=== PATIENT | male | born 1965 | race African-American/Black ===

== ENCOUNTER 2016-10-16 20:53 | Emergency (ER) | payer MEDICAID, MEDICARE ==
[2016-10-16 21:56] VITALS: BP 148/96
[2016-10-16] MEDS ORDERED: LIDOCAINE 1% INJ-PF (10 MG/ML) 30 ML SDV INJ ONE (22:00)
--- NOTE | 2016-10-16 22:02 | ER Document Report ---
ED Medical Screen (RME) - General Chief Complaint: Laceration Stated Complaint: RIGHT INDEX FINGER LACERATION Notes: 51-year-old male chief complaint of accidental laceration to the right index finger with a skill saw prior to arrival. Patient states that his tetanus is up -to-date within 5 years. Patient denies any other injuries. TRAVEL OUTSIDE OF THE [place] IN LAST 30 DAYS: No - Related Data Allergies/Adverse Reactions: aspirin [Aspirin] Allergy (Verified 10/16/16 21:59) Past Medical History - Social History Frequency of alcohol use: None Drug Abuse: None - Past Medical History Cardiac Medical History: Reports: Hx Hypertension Denies: Hx Coronary Artery Disease, Hx Hypercholesterolemia Endocrine Medical History: Reports: Hx Diabetes Mellitus Type 2 Renal/ Medical History: Denies: Hx Peritoneal Dialysis Malignancy Medical History: Reports Hx Prostate Cancer Past Surgical History: Reports: Hx Orthopedic Surgery - back laminectomy, no hardware - Immunizations Immunizations up to date: Yes Hx Diphtheria, Pertussis, Tetanus Vaccination: Yes Physical Exam - Vital signs Vitals: Temp Pulse Resp BP Pulse Ox 97.7 F 80 22 H 148/96 H 96 10/16/16 21:55 10/16/16 21:55 10/16/16 21:55 10/16/16 21:55 10/16/16 21:55 - Skin Skin irregularity: Laceration - Laceration between the PIP and MCP of the right second digit over the dorsal aspect, irregular, there is a gap when patient flexes his finger, full flexion and extension, normal capillary refill and sensation Course - Vital Signs Vital signs: Temp Pulse Resp BP Pulse Ox 97.7 F 80 22 H 148/96 H 96 10/16/16 21:55 10/16/16 21:55 10/16/16 21:55 10/16/16 21:55 10/16/16 21:59
== END 2016-10-17 01:08 | disposition left against medical advice (07) ==
LOC: ER 20:53
DX: Z53.9 Procedure and treatment not carried out, unspecified reason (principal); S61.210A Laceration without foreign body of right index finger without damage to nail, initial encounter; W29.8XXA Contact with other powered hand tools and household machinery, initial encounter
CPT/HCPCS: 99281

== ENCOUNTER 2017-03-22 19:21 | Emergency (ER) | payer MEDICARE, OTHER ==
[2017-03-22 19:32] VITALS: BP 126/71
--- NOTE | 2017-03-22 20:10 | ER Document Report ---
HPI - HPI Pain Level: 5 Notes: Patient is a 51-year-old male presents the ED complaining of right knee pain and giving out 3 days the known injury. Patient states that he will have an occasional sharp pain that comes down the wrong or twists wrong. He has not noticed any locking in his knee. Patient has not noticed any swelling or deformity to his knee. He still eating drink without any problems. He has not lost any control of bowel or bladder. Denies any low back pain. Patient has an allergy to aspirin but only causes GI issues. He has been taking some over- the-counter meds with minimal relief. Patient is a diabetic and hypertensive and takes metformin along with lisinopril/HCTZ. He does take another diabetic medicine p.o. but does not remember the name. Patient states his sugars have been running between 105 and 115 on average. PCM is Dr. Sj Cali [facility]. Patient states he is to keep his leg straight in order to ambulate about his knee feeling unstable. Denies any fever, headaches, URI, sore throat, chest pain, palpitations, syncope, cough, wheeze, shortness of breath, abdominal pain, nausea/vomiting/diarrhea, melena, hematochezia, urinary retention, dysuria, hematuria, oliguria, muscle weakness/paralysis, rash. Denies any IV drug use. - ROS Notes: REVIEW OF SYSTEMS: CONSTITUTIONAL : Denies fever, chills, or sweats. Denies recent illness. EENT: Denies eye, ear, throat, or mouth pain or symptoms. Denies nasal or sinus congestion or discharge. Denies throat, tongue, or mouth swelling or difficulty swallowing. CARDIOVASCULAR: Denies chest pain. Denies palpitations or racing or irregular heart beat. Denies ankle edema. RESPIRATORY: Denies cough, cold, or chest congestion. Denies shortness of breath, difficulty breathing, or wheezing. GASTROINTESTINAL: Denies abdominal pain or distention. Denies nausea, vomiting , or diarrhea. Denies blood in vomitus, stools, or per rectum. Denies black, tarry stools. Denies constipation. GENITOURINARY: Denies difficulty urinating, painful urination, burning, frequency, blood in urine, or discharge. MUSCULOSKELETAL: see hpi SKIN: Denies rash, lesions or sores. NEUROLOGICAL: Denies confusion or altered mental status. Denies passing out or loss of consciousness. Denies dizziness or lightheadedness. Denies headache. Denies weakness or paralysis or loss of use of either side. Denies problems with gait or speech. Denies sensory loss, numbness, or tingling. Denies seizures. ALL OTHER SYSTEMS REVIEWED AND NEGATIVE. Dictation was performed using [employer] voice recognition software - REPRODUCTIVE Reproductive: DENIES: : - DERM Skin Color: Normal Past Medical History - Social History Smoking Status: Unknown if Ever Smoked Family History: Reviewed & Not Pertinent Patient has suicidal ideation: No Patient has homicidal ideation: No - Past Medical History Cardiac Medical History: Reports: Hx Hypertension Denies: Hx Coronary Artery Disease, Hx Hypercholesterolemia Endocrine Medical History: Reports: Hx Diabetes Mellitus Type 2 Renal/ Medical History: Denies: Hx Peritoneal Dialysis Malignancy Medical History: Reports Hx Prostate Cancer Past Surgical History: Reports: Hx Orthopedic Surgery - back laminectomy, no hardware - Immunizations Immunizations up to date: Yes Hx Diphtheria, Pertussis, Tetanus Vaccination: Yes Vertical Provider Document - CONSTITUTIONAL Notes: PHYSICAL EXAMINATION: GENERAL: Well-appearing, well-nourished and in no acute distress. Obese. NECK: Normal range of motion, supple without lymphadenopathy LUNGS: Breath sounds clear to auscultation bilaterally and equal. No wheezes rales or rhonchi. HEART: Regular rate and rhythm without murmurs, rubs, gallops. ABDOMEN: Soft, nontender, nondistended abdomen. No guarding, no rebound. No masses appreciated. Normal bowel sounds present. No CVA tenderness bilaterally. Musculoskeletal: Rt LE: LROM to passive/active. Strength 5+/5. Patellar grind mildly postive. Unable to adequately assess ligaments/Marce due to obesity and patient resistance. + tenderness/discomfort with flexion of the knee and palp to patellar tendon. No obvious effusion presents. No deformity, erythema , or ecchymosis noted. No signs of skin infection. Extremities: No cyanosis, clubbing, or edema b/l. Peripheral pulses 2+. Capillary refill less than 3 seconds. NEUROLOGICAL: Normal sensory, motor exams PSYCH: Normal mood, normal affect. SKIN: Warm, Dry, normal turgor, no rashes or lesions noted. - INFECTION CONTROL TRAVEL OUTSIDE OF THE [place] IN LAST 30 DAYS: No - RESPIRATORY O2 Sat by Pulse Oximetry: 96 Course - Re-evaluation Re-evalutation: 03/22/17 20:55 Patient is an afebrile, well-hydrated, 51-year-old male presents the ED complaining of right knee pain with no known injury. Suspect possible meniscal involvement and/or ligament involvement. Differential also includes tendinitis and bursitis. Low suspicion for any septic arthritis or fracture based on H&P today. X-ray was unremarkable. Pt cedlined crutches, states he has some at home he can use. Pt would like the knee immobilizer. Conservative measures for symptoms. Recheck with your PCM in 2-3 days. Consider consult with orthopedics for ongoing/worsening symptoms. Return to the ED with any ongoing/ worsening symptoms as reviewed in discharge. Patient is in agreement. - Vital Signs Vital signs: Temp Pulse Resp BP Pulse Ox 98.2 F 95 16 126/71 H 96 03/22/17 19:31 03/22/17 19:31 03/22/17 19:31 03/22/17 19:31 03/22/17 19:31 Procedures - Immobilization Right Knee Time completed: 23:00 Pre-Proc Neuro Vasc Exam: Normal Immobilizer type: Knee immobilizer Performed by: PCT Post-Proc Neuro Vasc Exam: Normal Discharge - Discharge Clinical Impression: Instability of right knee joint Right knee pain Qualifiers: Chronicity: acute Qualified Code(s): M25.561 - Pain in right knee Condition: Stable Instructions: Use of Crutches ([facility]), Ice & Elevation ([facility]), Suspected Internal Knee Injury ([facility]) Additional Instructions: Rest, Ice, Compression, Elevation Use crutches/immobilizer as directed Tylenol/ibuprofen as needed Light stretches daily Strength exercises as able Moist heat and massage may help F/u with your PCP in 2-3 days for a recheck and further investigation Consider consult(s) with Orthopedics for ongoing/worsening symptoms Return to the ED with any worsening symptoms and/or development of fever, headache, chest pain, palpitations, syncope, shortness of breath, trouble breathing, abdominal pain, n/v/d, blood in stool/urine, loss of control of bowel /bladder, urinary retention, muscle weakness/paralysis, numbness/tingling, skin erythema, abscess, red streaks, or other worsening symptoms that are concerning to you. Referrals: [facility] ([facility] [Provider Group] - Follow up as needed
--- NOTE | 2017-03-22 20:40 | RADIOLOGY REPORT (SQ) ---
EXAM DESCRIPTION: KNEE RIGHT 4 VIEWS COMPLETED DATE/TIME: 03/22/2017 8:28 pm REASON FOR STUDY: right knee pain COMPARISON: None. NUMBER OF VIEWS: Four views. TECHNIQUE: AP, lateral, and both oblique radiographic images acquired of the right knee. LIMITATIONS: None. FINDINGS: MINERALIZATION: Normal. BONES: No acute fracture or dislocation. No worrisome bone lesions. JOINT: No effusion. SOFT TISSUES: No soft tissue swelling. No radio-opaque foreign body. OTHER: No other significant finding. IMPRESSION: NEGATIVE STUDY OF THE RIGHT KNEE. NO RADIOGRAPHIC EVIDENCE OF ACUTE INJURY. TECHNICAL DOCUMENTATION: JOB ID: [id number] [employer]- All Rights Reserved
== END 2017-03-22 21:11 | disposition home or self-care (01) ==
LOC: ER 19:21
DX: M25.361 Other instability, right knee (principal); M25.561 Pain in right knee; E11.9 Type 2 diabetes mellitus without complications; I10 Essential (primary) hypertension; Z79.84 Long term (current) use of oral hypoglycemic drugs; Z79.899 Other long term (current) drug therapy; E66.9 Obesity, unspecified; Z68.43 Body mass index [BMI] 50.0-59.9, adult; Z85.46 Personal history of malignant neoplasm of prostate; Z88.6 Allergy status to analgesic agent
CPT/HCPCS: 99283; 73564; L1830

== ENCOUNTER → 2017-09-22 | Outpatient (CLI) | payer MEDICARE, OTHER ==
[2017-09-23 09:48] LABS: PROSTATE SPECIFIC ANTIGEN 5.7 ng/mL (0.0-4.0); PSA % FREE 19.1 % (.); PSA FREE 1.09 ng/mL
== END ==
LOC: OD 11:47
PROVIDERS: ATTEND Urology
DX: C61 Malignant neoplasm of prostate (principal)
CPT/HCPCS: 36415; 84154

== ENCOUNTER 2018-02-12 10:14 | Observation (INO) | payer OTHER, MEDICARE ==
[2018-02-12] MEDS ORDERED: HYDROCODONE/ACETAMINOPHEN 5-325 MG TABLET PO ONE (11:00)
--- NOTE | 2018-02-12 11:00 | ER Document Report ---
ED Medical Screen (RME) - General Chief Complaint: Chest Pain Stated Complaint: CHEST PAIN Time Seen by Provider: 02/12/18 10:54 Notes: 52 years old male with a history of high blood pressure diabetes, just prior to arrival started having left-sided chest pain and left arm pain associated with nausea. Denies any diaphoresis denies any shortness of breath. Pain is persistent moderate in intensity. Movement of the chest or pressure on the chest increases the pain. I have greeted and performed a rapid initial assessment of this patient. A comprehensive ED assessment and evaluation of the patient, analysis of test results and completion of the medical decision making process will be conducted by additional ED providers. PHYSICAL EXAMINATION: GENERAL: Well-appearing, well-nourished and in no acute distress. Morbid obesity HEAD: Atraumatic, normocephalic. EYES: Pupils equal round extraocular movements intact, conjunctiva are normal. ENT: Nares patent NECK: Normal range of motion LUNGS: No respiratory distress Chest wall-chest wall tenderness noted on palpation of the left side of the chest. Musculoskeletal: Normal range of motion NEUROLOGICAL: Normal speech, normal gait. PSYCH: Normal mood, normal affect. SKIN: Warm, Dry, normal turgor, no rashes or lesions noted. TRAVEL OUTSIDE OF THE [place] IN LAST 30 DAYS: No - Related Data Allergies/Adverse Reactions: aspirin [Aspirin] Allergy (Verified 02/12/18 10:17) Past Medical History - Past Medical History Cardiac Medical History: Reports: Hx Hypertension Denies: Hx Coronary Artery Disease, Hx Hypercholesterolemia Endocrine Medical History: Reports: Hx Diabetes Mellitus Type 2 Renal/ Medical History: Denies: Hx Peritoneal Dialysis Malignancy Medical History: Reports Hx Prostate Cancer Past Surgical History: Reports: Hx Orthopedic Surgery - back laminectomy, no hardware - Immunizations Immunizations up to date: Yes Hx Diphtheria, Pertussis, Tetanus Vaccination: Yes Physical Exam - Vital signs Vitals: Temp Pulse Resp BP Pulse Ox 98.2 F 69 18 109/64 97 02/12/18 10:28 02/12/18 10:28 02/12/18 10:02/12/18 10:02/12/18 10:28 Course - Vital Signs Vital signs: Temp Pulse Resp BP Pulse Ox 98.2 F 69 18 109/64 97 02/12/18 10:28 02/12/18 10:28 02/12/18 10:28 02/12/18 10:28 02/12/18 10:28 Doctor's Discharge - Discharge Referrals: MARLON BUSBY,DARIN Li MD [Primary Care Provider] - Follow up as needed
[2018-02-12 11:42] LABS: ABSOLUTE BASOPHILS # (AUTO) 0.1 10^3/uL (0.0-0.2); ABSOLUTE EOSINOPHILS # (AUTO) 0.3 10^3/uL (0.0-0.6); ABSOLUTE LYMPHOCYTES (AUTO) 2.4 10^3/uL (0.5-4.7); ABSOLUTE MONOCYTES (AUTO) 0.5 10^3/uL (0.1-1.4); ABSOLUTE NEUT (AUTO) 3.1 10^3/uL (1.7-8.2); EOSINOPHILS % (AUTO) 4.3 % (0-6); HEMATOCRIT 48.5 % (37.9-51.0); HEMOGLOBIN 16.2 g/dL (13.5-17.0); LYMPHOCYTES % (AUTO) 37.6 % (13-45); MEAN CORPUSCULAR HEMOGLOBIN 28.5 pg (27.0-33.4); MEAN CORPUSCULAR HGB CONC 33.3 g/dL (32.0-36.0); MEAN CORPUSCULAR VOLUME 85 fl (80-97); MONOCYTES % (AUTO) 7.6 % (3-13); PLATELET COUNT 201 10^3/uL (150-450); RED BLOOD COUNT 5.67 10^6/uL (4.35-5.55); RED CELL DISTRIBUTION WIDTH 14.3 % (11.5-14.0); SEGMENTED NEUTROPHILS % (AUTO) 49.5 % (42-78); TOTAL CELLS COUNTED % (AUTO) 100 %; WHITE BLOOD COUNT 6.3 10^3/uL (4.0-10.5)
[2018-02-12 12:04] LABS: ALANINE AMINOTRANSFERASE 42 U/L (21-72); ALBUMIN 3.8 g/dL (3.5-5.0); ALKALINE PHOSPHATASE 64 U/L (38-126); ANION GAP 10 (5-19); ASPARTATE AMINO TRANSFERASE 24 U/L (17-59); BILIRUBIN,DIRECT 0.3 mg/dL (0.0-0.4); BILIRUBIN,TOTAL 0.7 mg/dL (0.2-1.3); BLOOD UREA NITROGEN 17 mg/dL (7-20); CALCIUM 9.4 mg/dL (8.4-10.2); CARBON DIOXIDE 28 mmol/L (22-30); CHLORIDE 107 mmol/L (98-107); CREATINE KINASE 58 U/L (55-170); GLUCOSE 75 mg/dL (75-110); POTASSIUM 4.1 mmol/L (3.6-5.0); SODIUM 144.5 mmol/L (137-145); TOTAL PROTEIN 6.6 g/dL (6.3-8.2)
--- NOTE | 2018-02-12 12:06 | ER Document Report ---
ED Cardiac - General Mode of Arrival: Ambulatory Information source: Patient TRAVEL OUTSIDE OF THE [place] IN LAST 30 DAYS: No <ERICH HENRY - Last Filed: 02/12/18 19:00> <PORTILLO DEMARCO - Last Filed: 02/12/18 19:10> - General Chief Complaint: Chest Pain Stated Complaint: CHEST PAIN Time Seen by Provider: 02/12/18 10:54 Notes: 52 y.o male with HTN, DM and PSHx of back surgery presents to the ED with CP. Pt reports that he went to work this morning and felt dizzy with pain in his left arm and chest. Pt reports previous stress test but states that it was not within the past year or two. He denies Hx of HLD, MT or stent placement. He denies hx of known murmur. Pt denies any family hx of heart issues. Pt also complains of a tingling feeling to his LT side that he describes as a phone vibrating in his pocket. He denies any incontinence, foot drop or stumbling when walking or numbness to his legs. Pt's PCP is Mitesh Galvan. (ERICH HENRY) - Related Data Allergies/Adverse Reactions: aspirin [Aspirin] Allergy (Verified 02/12/18 10:17) Past Medical History - General Information source: Patient - Social History Smoking Status: Former Smoker Chew tobacco use (# tins/day): No Frequency of alcohol use: None Drug Abuse: None Family History: Reviewed & Not Pertinent Patient has suicidal ideation: No Patient has homicidal ideation: No - Past Medical History Cardiac Medical History: Reports: Hx Hypertension Endocrine Medical History: Reports: Hx Diabetes Mellitus Type 2 Renal/ Medical History: Denies: Hx Peritoneal Dialysis Malignancy Medical History: Reports Hx Prostate Cancer Past Surgical History: Reports: Hx Orthopedic Surgery - back laminectomy, no hardware - Immunizations Immunizations up to date: Yes Hx Diphtheria, Pertussis, Tetanus Vaccination: Yes <ERICH HENRY - Last Filed: 02/12/18 19:00> Review of Systems - Review of Systems Constitutional: No symptoms reported EENT: No symptoms reported Cardiovascular: See HPI, Chest pain, Dizziness Respiratory: No symptoms reported Gastrointestinal: denies: Fecal incontinence Genitourinary: denies: Incontinence Male Genitourinary: No symptoms reported Musculoskeletal: Other - LT arm pain Skin: No symptoms reported Hematologic/Lymphatic: No symptoms reported Neurological/Psychological: Tingling - to LT side - "phone buzzing in pocket". denies: Gait changes, Numbness -: Yes All other systems reviewed and negative <ERICH HENRY - Last Filed: 02/12/18 19:00> Physical Exam <ERICH HENRY - Last Filed: 02/12/18 19:00> <PORTILLO DEMARCO - Last Filed: 02/12/18 19:10> - Vital signs Vitals: Temp Pulse Resp BP Pulse Ox 98.2 F 69 18 109/64 97 02/12/18 10:28 02/12/18 10:28 02/12/18 10:28 02/12/18 10:28 02/12/18 10:28 - Notes Notes: PHYSICAL EXAM GENERAL: Alert, interacts well. No acute distress. HEAD: Normocephalic, atraumatic. EYES: Pupils equal, round, and reactive to light. Extraocular movements intact. ENT: Oral mucosa moist, tongue midline. NECK: Full range of motion. Supple. Trachea midline. LUNGS: Clear to auscultation bilaterally, no wheezes, rales, or rhonchi. No respiratory distress. HEART: Regular rate and rhythm. No gallops or rubs. 2/6 systolic murmur. ABDOMEN: Obese. Soft, non-tender. Non-distended. Bowel sounds present in all 4 quadrants. No guarding, rebound, or rigidity. Back: No midline megan tenderness to palpation. EXTREMITIES: Moves all 4 extremities spontaneously. No edema, radial and dorsalis pedis pulses 2/4 bilaterally. No cyanosis. NEUROLOGICAL: Alert and oriented x3. Normal speech. PSYCH: Normal affect, normal mood. (ERICH HENRY) Course - Laboratory Result Diagrams: 02/12/18 11:18 02/12/18 11:18 <ERICH HENRY - Last Filed: 02/12/18 19:00> - Laboratory Result Diagrams: 02/12/18 11:18 02/12/18 11:18 <PORTILLO DEMARCO - Last Filed: 02/12/18 19:10> - Re-evaluation Re-evalutation: 02/12/18 12:48 CBC is grossly unremarkable, CMP unremarkable, cardiac enzymes initially negative, EKG shows sinus rhythm at a rate of 75, normal axis, normal intervals , no ST segment elevations or depressions, there are isolated nonspecific T- wave inversions in lead III per my interpretation. Chest x-ray shows no acute process. Patient has multiple risk factors for acute coronary syndrome. He is given Plavix because he is allergic to aspirin. Patient was discussed with Dr. Dangelo the hospitalist who agrees to accept the patient to his service for a chest pain rule out observation on telemetry. (PORTILLO DEMARCO) - Vital Signs Vital signs: Temp Pulse Resp BP Pulse Ox 97.7 F 61 18 100/57 L 100 02/12/18 14:43 02/12/18 15:19 02/12/18 14:43 02/12/18 14:43 02/12/18 14:43 - Laboratory Laboratory results interpreted by me: 02/12/18 02/12/18 11:18 11:18 RBC 5.67 H RDW 14.3 H HDL Cholesterol 27 L - EKG Interpretation by Me Additional EKG results interpreted by me: 02/12/18 12:48 EKG shows sinus rhythm at a rate of 75, normal axis, normal intervals, no ST segment elevations or depressions, isolated nonspecific T-wave inversions in lead III per my interpretation. (PORTILLO DEMARCO) Discharge <ERICH HENRY - Last Filed: 02/12/18 19:00> - Discharge Admitting Provider: Hospitalist - [facility] Admitted: Telemetry <PORTILLO DEMARCO - Last Filed: 02/12/18 19:10> - Discharge Clinical Impression: Chest pain, rule out acute myocardial infarction Condition: Stable Disposition: ADMITTED OBSERVATION Scribe Attestation: 02/12/18 19:10 I personally performed the services described in the documentation, reviewed and edited the documentation which was dictated to the scribe in my presence, and it accurately records my words and actions. (PORITLLO DEMARCO) Scribe Documentation - Scribe Written by Kyrie:: Kyrie Foster [id number] 02/12/18 acting as scribe for :: Bartolo <ERICH HENRY - Last Filed: 02/12/18 19:00>
--- NOTE | 2018-02-12 12:08 | RADIOLOGY REPORT (SQ) ---
EXAM DESCRIPTION: CHEST SINGLE VIEW COMPLETED DATE/TIME: 02/12/2018 11:32 am REASON FOR STUDY: Chest pain COMPARISON: Two-view chest 10/12/2014 EXAM PARAMETERS: NUMBER OF VIEWS: One view. TECHNIQUE: Single frontal radiographic view of the chest acquired. RADIATION DOSE: NA LIMITATIONS: None. FINDINGS: LUNGS AND PLEURA: No opacities, masses or pneumothorax. No pleural effusion. MEDIASTINUM AND HILAR STRUCTURES: No masses. Contour normal. HEART AND VASCULAR STRUCTURES: Heart normal in size. Normal vasculature. BONES: No acute findings. HARDWARE: None in the chest. OTHER: No other significant finding. IMPRESSION: NO ACUTE RADIOGRAPHIC FINDING IN THE CHEST. TECHNICAL DOCUMENTATION: JOB ID: [id number] [employer]- All Rights Reserved Reading location - IP/workstation name: [email or web address]
[2018-02-12 12:17] LABS: CREATINE KINASE MB 0.44 ng/mL (<4.55)
[2018-02-12 12:19] LABS: TROPONIN I < 0.012 ng/mL
[2018-02-12] MEDS ORDERED: CLOPIDOGREL BISULFATE 300 MG TABLET PO ONE (12:45)
[2018-02-12] MEDS ORDERED: NITROGLYCERIN 0.4 MG/TAB 25 TAB/BOTTLE SL PRN (13:38)
[2018-02-12] MEDS ORDERED: ONDANSETRON 4 MG TAB.RAPDIS PO PRN (13:38)
[2018-02-12] MEDS ORDERED: ACETAMINOPHEN 325 MG TABLET PO PRN (13:45)
[2018-02-12] MEDS ORDERED: HYDROCODONE/ACETAMINOPHEN 5-325 MG TABLET PO PRN (13:46)
--- NOTE | 2018-02-12 14:05 | PDOC H&P ---
History of Present Illness Admission Date/PCP: 02/12/18 13:04 PCP: Dr. Mitesh Galvan Patient complains of: chest pain History of Present Illness: YOKO GREEN is a 52 year old male with history of morbid obesity, T2DM, and HTN who presented to [facility] ED for evaluation of acute chest pain. He was in good health until this morning around 8am when he developed lightheadness and nausea. A few minutes later he had sharp pain in his chest (left side) that radiated down left arm. He also noted intermittent facial numbness and diaphoresis. Denies SOB, abdominal pain, or vomiting. NO other symptoms. Had 1 similar episode 3 years ago. Stress test was performed at that time and negative per patient. Work up today included labs which were largely unremarkable including negative troponin * 1. EKG showed sinus rhythm with non- specific changes however no acute ST elevations. At time of my evaluation patient's symptoms were resolved. He notes a family history on maternal side that is strong for diabetes. Past Medical History Cardiac Medical History: Reports: Hypertension Denies: Coronary Artery Disease, Hyperlipidema Endocrine Medical History: Reports: Diabetes Mellitus Type 2 Past Surgical History Past Surgical History: Reports: Orthopedic Surgery - back laminectomy, no hardware Social History Information Source: Patient Lives with: Family Smoking Status: Former Smoker Frequency of Alcohol Use: None Hx Recreational Drug Use: No Drugs: None Family History Family History: Reviewed & Not Pertinent Parental Family History Reviewed: Yes - Mother: DM, HTN Children Family History Reviewed: NA Sibling(s) Family History Reviewed.: Yes Medication/Allergy Home Medications: Lisinopril/Hydrochlorothiazide [Lisinopril-Hctz 10-12.5 mg Tab] 1 each PO DAILY 10/04/13 Metformin HCl [Glucophage] 1,000 mg PO DAILY 10/04/13 Hydrocodone/Acetaminophen [[place] 5-325 mg Tablet] 1 tab PO Q4HP PRN #14 tablet 01/04/15 Butalb/Acetaminophen/Caffeine [Fioricet 50-300-40 mg Capsule] 1 cap PO Q4 PRN # 20 cap 01/10/15 Indomethacin [Indocin 50 mg Capsule] 50 mg PO TID PRN #30 capsule 12/01/15 Allergies/Adverse Reactions: aspirin [Aspirin] Allergy (Verified 02/12/18 10:17) Review of Systems All systems: reviewed and no additional remarkable complaints except as stated Physical Exam Vital Signs: Temp Pulse Resp BP Pulse Ox 98.2 F 69 14 103/71 99 02/12/18 10:28 02/12/18 10:28 02/12/18 12:15 02/12/18 13:04 02/12/18 13:04 General appearance: PRESENT: no acute distress, cooperative, morbidly obese Head exam: PRESENT: atraumatic, normocephalic Eye exam: ABSENT: scleral icterus Mouth exam: PRESENT: moist Neck exam: PRESENT: other - Thick neck, difficult to assess for JVD Respiratory exam: PRESENT: unlabored. ABSENT: tachypnea, wheezes Cardiovascular exam: PRESENT: +S1, +S2, other - Distant heart sounds due to body habitus GI/Abdominal exam: PRESENT: normal bowel sounds, soft. ABSENT: tenderness Extremities exam: PRESENT: full ROM Musculoskeletal exam: PRESENT: ambulatory Neurological exam: PRESENT: alert, awake, CN II-XII grossly intact Psychiatric exam: PRESENT: appropriate affect Skin exam: PRESENT: dry, intact Results EKG Comments: Per HPI Impressions: Chest X-Ray 02/12/18 10:57 IMPRESSION: NO ACUTE RADIOGRAPHIC FINDING IN THE CHEST. Assessment & Plan - Diagnosis (1) Chest pain, rule out acute myocardial infarction Is this a current diagnosis for this admission?: Yes Plan: Presented with class chest pain symptoms that improved with nitro. No EKG changes and troponin negative * 1. Risk factors for cardiac disease include morbid obesity, black race, HTN, and DM. No strong family history of CAD. Plan - Noted to have ASA allergy, so was not given. Nitro SL and Zofran ODT ordered PRN - Will check 2nd troponin, added lipid profile and HgA1c for risk stratification - Ordered nuclear stress test - Started lipitor 40mg qhs daily given high 10 year score (estimated) - Cardiac/heart healthy diet - Admit to telemetry, if negative stress can discharge tomorrow 02/13 (2) Type 2 diabetes mellitus Qualifiers: Diabetes mellitus jail insulin use: without jail use Diabetes mellitus complication status: without complication Qualified Code(s): E11.9 - Type 2 diabetes mellitus without complications Is this a current diagnosis for this admission?: Yes Plan: Compliant with home oral Metformin and Glipizide - Will check HgA1c to get new baseline (3) Hypertension Qualifiers: Hypertension type: essential hypertension Qualified Code(s): I10 - Essential (primary) hypertension Is this a current diagnosis for this admission?: Yes Plan: Chronic and Well controlled, continued home medications (4) Morbid obesity with BMI of 50.0-59.9, adult Is this a current diagnosis for this admission?: Yes Plan: Has started vegetarian diet and lost 30lbs in last month. Congratulated patient and encouraged to continue with healthy lifestyle changes. - Time Time Spent: 50 to 70 Minutes Critical Time spent with patient: 15-24 minutes Anticipated discharge: Home Within: within 24 hours
[2018-02-12 14:24] LABS: CHOLESTEROL 126.46 mg/dL (0-200); TRIGLYCERIDES 101 mg/dL (<150)
[2018-02-12 14:35] LABS: DIRECT LDL 88 mg/dL (<100)
--- NOTE | 2018-02-12 18:02 | EKG REPORT ---
SEVERITY:- BORDERLINE ECG - SINUS RHYTHM BORDERLINE INFERIOR Q WAVES : Confirmed by: Sary Rashid 12-Feb-2018 18:01:26
[2018-02-12] MEDS ORDERED: ATORVASTATIN CALCIUM 40 MG TABLET PO SCH (22:00)
[2018-02-13] MEDS ORDERED: (PENDING PHARMACY ID) (Lisinopril/Hydrochlorothiazide [Lisinopril-Hctz 10-12.5 Mg Tab] 1 E PO SCH (10:00)
[2018-02-13] MEDS ORDERED: HYDROCHLOROTHIAZIDE 12.5 MG CAPSULE PO SCH (10:00)
[2018-02-13] MEDS ORDERED: LISINOPRIL 10 MG TABLET PO SCH (10:00)
[2018-02-13] MEDS ORDERED: REGADENOSON INJ 0.4 MG/5 ML DISP.SYRIN IV ONE (11:54)
--- NOTE | 2018-02-13 14:32 | PDOC DISCHARGE SUMMARY ---
General - Admit/Disc Date/PCP Admission Date/Primary Care Provider: 02/12/18 13:04 EBONY OSMAN PA-C Discharge Date: 02/13/18 - Discharge Diagnosis (1) Musculoskeletal chest pain Is this a current diagnosis for this admission?: Yes Summary: Normal stress test. Evaluation suggests likely musculoskeletal pain (2) Hypertension Is this a current diagnosis for this admission?: Yes Summary: BP running low normal- meds adjusted. HCTZ stopped (3) Morbid obesity with BMI of 50.0-59.9, adult Is this a current diagnosis for this admission?: Yes (4) Type 2 diabetes mellitus Is this a current diagnosis for this admission?: Yes - Additional Information Discharge Diet: As Tolerated, Diabetic Discharge Activity: Activity As Tolerated Prescriptions: Lisinopril [Prinivil 10 mg Tablet] 10 mg PO DAILY 30 Days #30 tablet Home Medications: Glipizide [Glipizide Xl] 10 mg PO DAILY 02/12/18 Metformin HCl [Glucophage] 1,000 mg PO DAILY 02/12/18 Hydrocodone/Acetaminophen [[place] 5-325 mg Tablet] 1 tab PO Q4HP PRN tablet 10/02 Lisinopril [Prinivil 10 mg Tablet] 10 mg PO DAILY 30 Days #30 tablet 02/13/18 History of Present Illness History of Present Illness: YOKO GREEN is a 52 year old male with Morbid obesity Diabetes 2, not insulin dependent Hypertension. Chronic back pain He presented to the ER with sharp left sided chest pain and EKG showed NSR with no changes suggesting ischemia. Chest Xray normal. Serial cardiac enzymes negative. No further chest pain. Stress test normal. LDL 88, total cholesterol 126 HDL 27 Hb A1c 5.8 Stable for discharge home. Hospital Course Hospital Course: As above Physical Exam Vital Signs: Temp Pulse Resp BP Pulse Ox 97.7 F 75 20 116/86 H 100 02/13/18 11:22 02/13/18 11:22 02/13/18 11:22 02/13/18 11:22 02/13/18 11:22 Intake & Output 02/12/18 02/13/18 02/14/18 06:59 06:59 06:59 Intake Total 766 Balance 766 Weight 165.2 kg General appearance: PRESENT: no acute distress Respiratory exam: PRESENT: symmetrical, unlabored Results Laboratory Results: 02/12/18 02/12/18 15:20 21:10 Troponin I < 0.012 < 0.012 Impressions: Chest X-Ray 02/12/18 10:57 IMPRESSION: NO ACUTE RADIOGRAPHIC FINDING IN THE CHEST. Qualifiers - * PATIENT BEING DISCHARGED WITH ANY OF THE FOLLOWING DIAGNOSIS: No Plan Time Spent: Greater than 30 Minutes
[2018-02-13 15:24] VITALS: BP 119/74
--- NOTE | 2018-02-13 19:28 | DRAGON STRESS TEST REPORT ---
Intravenous Lexiscan Cardiolite stress test using single photon emmision computerized tomography. Date of procedure: 2017. Ordering Provider: Dr. Rashaun Villalba. Patient's status: In Patient. Indication: Chest pain. Coronary risk factors: Age, hypertension, diabetes mellitus, and dyslipidemia. Resting EKG: Sinus Rhythm. Within normal limits Stress EKG: No changes of ischemia. The patient no chest pain or discomfort, and there were no arrhythmias seen. Reason for termination: Protocol. Conclusions: Normal EKG and hemodynamic response to IV Lexiscan. Nuclear data: At rest the patient was given 42.8 millicuries of technetium 99m sestamibi injected intravenously. As per protocol rest non gated SPECT images were obtained. Subsequently the patient was given intravenous Lexiscan at a dose of 0.4 mg in 5 mL intravenously, followed by flush with normal saline. Subsequently the stress dose of 42.7 millicuries of technetium 99m sestamibi was injected intravenously. As per protocol stress gated images were obtained. Nuclear interpretation: Review of images showed that all segments of the myocardium had normal perfusion at rest, and normal perfusion post stress with IV Lexiscan. All segments of the myocardium had normal motion, contraction, and thickening by gated study. T. I D. ratio was normal at 0.89. Computer read rest, and stress left ventricular ejection fraction were 59 %, and 62 %, respectively. Conclusion: 1. There is no scintigraphic evidence of Lexiscan induced myocardial ischemia. 2. There is no scintigraphic evidence of myocardial infarction/scar. Recommendations: Aggressive risk factor modification, and treating the underlying co- morbidities. [facility]
== END 2018-02-13 15:40 | disposition home or self-care (01) ==
LOC: ER 10:14 → EH 13:04 → 4S 14:51
PROVIDERS: ADMIT Emergency Medicine; ATTEND Emergency Medicine
DX: R07.89 Other chest pain (principal); I10 Essential (primary) hypertension; E66.01 Morbid (severe) obesity due to excess calories; E11.8 Type 2 diabetes mellitus with unspecified complications; M54.9 Dorsalgia, unspecified; G89.29 Other chronic pain; R20.2 Paresthesia of skin; M79.602 Pain in left arm; Z68.43 Body mass index [BMI] 50.0-59.9, adult; Z79.899 Other long term (current) drug therapy; Z79.84 Long term (current) use of oral hypoglycemic drugs; Z98.890 Other specified postprocedural states; Z82.49 Family history of ischemic heart disease and other diseases of the circulatory system; Z79.1 Long term (current) use of non-steroidal anti-inflammatories (NSAID); Z87.891 Personal history of nicotine dependence; Z85.46 Personal history of malignant neoplasm of prostate; Z88.6 Allergy status to analgesic agent
CPT/HCPCS: 93005; 99285; 36415; 82553; 82962; 82550; 85025; 80053; 84484; 83036; 80061; 93017; 71045; 78452; 93010; G0378 ×2; A9500; J3490 ×3; J2785; Q9969

== ENCOUNTER 2018-03-20 07:13 | Emergency (ER) | payer OTHER, MEDICARE ==
[2018-03-20] MEDS ORDERED: MORPHINE SULFATE 10 MG/ML INJ IM ONE (07:50)
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
[2018-03-20 09:48] VITALS: BP 134/93
== END 2018-03-20 09:58 | disposition home or self-care (01) ==
LOC: ER 07:13
DX: S40.022A Contusion of left upper arm, initial encounter (principal); R07.89 Other chest pain; W20.8XXA Other cause of strike by thrown, projected or falling object, initial encounter; Y93.89 Activity, other specified; E11.9 Type 2 diabetes mellitus without complications; I10 Essential (primary) hypertension; M25.512 Pain in left shoulder; Z88.6 Allergy status to analgesic agent; Z85.46 Personal history of malignant neoplasm of prostate
CPT/HCPCS: 99284; 96372; 73060; 71101; J2270

== ENCOUNTER 2018-04-03 17:40 | Emergency (ER) | payer OTHER, BC, MEDICARE ==
[2018-04-03 18:00] VITALS: BP 139/90
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
--- NOTE | 2018-04-03 19:51 | RADIOLOGY REPORT (SQ) ---
EXAM DESCRIPTION: PELVIS AP COMPLETED DATE/TIME: 04/03/2018 7:21 pm REASON FOR STUDY: apin hx prostate cancer COMPARISON: None. NUMBER OF VIEWS: One view TECHNIQUE: AP Pelvis LIMITATIONS: None. FINDINGS: MINERALIZATION: Normal. HIPS: No acute fracture or dislocation. No worrisome bone lesions. PELVIS AND SACRUM: No acute fracture or dislocation. No worrisome bone lesions. PUBIS AND ISCHIUM: No acute fracture. LOWER LUMBAR SPINE: No significant findings as visualized. SOFT TISSUES: No findings. OTHER: No other significant finding. IMPRESSION: No acute findings. TECHNICAL DOCUMENTATION: JOB ID: [id number]-72 2010 [employer]- All Rights Reserved Reading location - IP/workstation name: [email or web address]
--- NOTE | 2018-04-03 19:52 | RADIOLOGY REPORT (SQ) ---
EXAM DESCRIPTION: L SPINE WHOLE COMPLETED DATE/TIME: 04/03/2018 7:21 pm REASON FOR STUDY: apin hx prostate cancer COMPARISON: 07/03/2011 NUMBER OF VIEWS: Five views including obliques. TECHNIQUE: AP, lateral, oblique, and sacral radiographic images acquired of the lumbar spine. LIMITATIONS: None. FINDINGS: MINERALIZATION: Normal. SEGMENTATION: Normal. No transitional anatomy. ALIGNMENT: Normal. VERTEBRAE: Maintained height. No fracture or worrisome bone lesion. DISCS: Multilevel disc space narrowing with osteophytes. POSTERIOR ELEMENTS: Pedicles and facets are intact. No pars defect or posterior arch defects. Facet arthropathy is present. HARDWARE: None in the spine. PARASPINAL SOFT TISSUES: Normal. PELVIS: Intact as visualized. No fractures or worrisome bone lesions. SI joints intact. OTHER: No other significant finding. IMPRESSION: No acute findings. TECHNICAL DOCUMENTATION: JOB ID: [id number] 2010 [employer]- All Rights Reserved Reading location - IP/workstation name: [employer] [facility]
== END 2018-04-03 20:34 | disposition home or self-care (01) ==
LOC: ER 17:40
DX: M25.512 Pain in left shoulder (principal); R07.9 Chest pain, unspecified; T14.8XXA Other injury of unspecified body region, initial encounter; W20.8XXA Other cause of strike by thrown, projected or falling object, initial encounter; Y93.89 Activity, other specified; M54.5 Low back pain; G89.29 Other chronic pain; E66.01 Morbid (severe) obesity due to excess calories; Z68.42 Body mass index [BMI] 45.0-49.9, adult; R20.0 Anesthesia of skin; R97.20 Elevated prostate specific antigen [PSA]; I10 Essential (primary) hypertension; E11.9 Type 2 diabetes mellitus without complications; Z98.890 Other specified postprocedural states; Z85.46 Personal history of malignant neoplasm of prostate
CPT/HCPCS: 72110; 72170; 99283

== ENCOUNTER → 2018-07-29 | Outpatient (CLI) | payer MEDICARE, BC ==
--- NOTE | 2018-07-29 14:20 | RADIOLOGY REPORT (SQ) ---
EXAM DESCRIPTION: NM WHOLE BODY BONE SCAN COMPLETED DATE/TIME: 07/29/2018 1:33 pm REASON FOR STUDY: PROSTATE CA (C61) C61 MALIGNANT NEOPLASM OF PROSTATE COMPARISON: L-spine, pelvis, left humerus, left rib radiographs March 2018 RADIONUCLIDE AND DOSE: 20 millicuries Tc99m HDP. The route of agent administration: Intravenous. ADDITIONAL DRUGS AND DOSES: None. TECHNIQUE: Routine delayed images at 3 hours post radionuclide injection acquired of the bony skelet on including anterior and posterior whole-body projections and additional focused images as needed. LIMITATIONS: None. FINDINGS: BONES: There is focal uptake at the left sternoclavicular joint that is likely degenerativ e. Mild degenerative uptake is suggested in the knees. No other abnormal focal uptake is seen in th e bones. KIDNEYS: Symmetric excretion without obstruction. OTHER: No other significant finding. IMPRESSION: There are areas of degenerative uptake. The overall appearance of the scan does not sug gest metastatic disease to bone. COMMENT: Quality measure 147: Current bone scan is compared with any available plain radiographs, p rior bone scans, and CT/MRI. TECHNICAL DOCUMENTATION: JOB ID: [id number] [email or web address]- All Rights Reserved Reading location - IP/workstation name: [email or web address]
== END ==
LOC: RAD 08:06
PROVIDERS: ATTEND Internal Medicine Medical Oncology
DX: C61 Malignant neoplasm of prostate (principal)
CPT/HCPCS: 78306; A9561

== ENCOUNTER 2018-10-24 21:45 | Emergency (ER) | payer MEDICARE, MEDICAID ==
[2018-10-24 22:58] VITALS: BP 158/90
--- NOTE | 2018-10-24 23:10 | ER Document Report ---
ED GI Bleed / Rectal Pain - General Chief Complaint: Rectal Bleeding Stated Complaint: BLOOD IN REAR Time Seen by Provider: 10/24/18 23:01 Primary Care Provider: [facility] [Provider Group] - Follow up as needed Notes: Patient is a 53-year-old male that comes to the emergency department for chief complaint of rectal bleeding. He states that he has had intermittent bright red blood from the rectum for the past few weeks, he states that initially he was using toilet paper that "tore him up", he states he switched in these problems resolved until just prior to arrival he started noticing blood on the tissue with wiping again. He denies any significant bleeding, he denies black stools, abdominal pain, nausea or vomiting, fever or chills. He states that he did have a painful bowel movement prior to arrival. Patient has a history of prostate cancer, he is scheduled to have the seeds placed, however he states he had a recent PET scan and this did not show any metastasis. He is not on a blood t hinner. Remaining medical history is type 2 diabetes and hypertension, both treated. TRAVEL OUTSIDE OF THE [place] IN LAST 30 DAYS: No - Related Data Allergies/Adverse Reactions: aspirin [Aspirin] Allergy (Verified 03/20/18 07:16) Past Medical History - General Information source: Patient - Social History Smoking Status: Never Smoker Frequency of alcohol use: None Drug Abuse: None Lives with: Family Family History: Reviewed & Not Pertinent - Past Medical History Cardiac Medical History: Reports: Hx Hypertension Denies: Hx Coronary Artery Disease, Hx Hypercholesterolemia Endocrine Medical History: Reports: Hx Diabetes Mellitus Type 2 Renal/ Medical History: Denies: Hx Peritoneal Dialysis Malignancy Medical History: Reports Hx Prostate Cancer Past Surgical History: Reports: Hx Orthopedic Surgery - back laminectomy, no hardware - Immunizations Immunizations up to date: Yes Hx Diphtheria, Pertussis, Tetanus Vaccination: Yes Review of Systems - Review of Systems Constitutional: No symptoms reported EENT: No symptoms reported Cardiovascular: No symptoms reported Respiratory: No symptoms reported Gastrointestinal: See HPI Genitourinary: No symptoms reported Male Genitourinary: No symptoms reported Musculoskeletal: No symptoms reported Skin: No symptoms reported Hematologic/Lymphatic: No symptoms reported Neurological/Psychological: No symptoms reported Physical Exam - Vital signs Vitals: Temp Pulse Resp BP Pulse Ox 98.4 F 83 14 158/90 H 100 10/24/18 22:57 10/24/18 22:57 10/24/18 22:57 10/24/18 22:57 10/24/18 22:57 - Notes Notes: GENERAL: Alert, interacts well. No acute distress. HEAD: Normocephalic, atraumatic. EYES: Pupils equal, round, and reactive to light. Extraocular movements intact. ENT: Oral mucosa moist, tongue midline. Oropharynx unremarkable. Airway patent. Nares patent, no nasal septal hematoma, TM's intact. NECK: Full range of motion. Supple. Trachea midline. LUNGS: Clear to auscultation bilaterally, no wheezes, rales, or rhonchi. No respiratory distress. HEART: Regular rate and rhythm. No murmur ABDOMEN: Soft, non-tender. Non-distended. Bowel sounds present in all 4 quadrants. GENITOURINARY: No signs of trauma or concerning abnormalities noted. RECTAL: There is a small superficial linear cut/fissure near the anal sphincter without any surrounding tenderness, erythema, induration, fluctuance. No current bleeding. Small internal hemorrhoid that is not currently bleeding. Unremarkable exam otherwise. EXTREMITIES: Moves all 4 extremities spontaneously. No edema, normal radial and dorsalis pedis pulses bilaterally. No cyanosis. BACK: no cervical, thoracic, lumbar midline tenderness. No saddle anesthesia, normal distal neurovascular exam. NEUROLOGICAL: Alert and oriented x3. Normal speech. [cranial nerves II through XII grossly intact]. PSYCH: Normal affect, normal mood. SKIN: Warm, dry, normal turgor. No rashes or lesions noted. Course - Re-evaluation Re-evalutation: Small fissure noted near the rectum, no evidence of abscess, no current ble eding, no other concerning findings noted. - Vital Signs Vital signs: Temp Pulse Resp BP Pulse Ox 98.4 F 83 14 158/90 H 100 10/24/18 22:57 10/24/18 22:57 10/24/18 22:57 10/24/18 22:57 10/24/18 22:57 Discharge - Discharge Clinical Impression: Rectal bleeding Condition: Stable Disposition: HOME, SELF-CARE Additional Instructions: Your examination shows a resolving internal hemorrhoid and also a cut/fissure near the rectal sphincter which is probably for your bleeding from prior to arrival. This should heal with time. I recommend sitz baths or at least using the shower unit to clean the area regularly, high-fiber diet, the Colace stool softener for a few days, and the topical lidocaine as prescribed if needed. Medicated pads [id number] such as Tucks can be useful after bowel movements. Do not strain on the toilet. You should call the doctor or return if you develop fever, increasing pain, heavy bleeding, or if you simply fail to improve with treatment. See surgical clinic office referral as well. Prescriptions: Docusate Sodium [Colace 100 mg Capsule] 100 mg PO ASDIR PRN #30 capsule PRN Reason: Referrals: [facility] [Provider Group] - Follow up as needed
[2018-10-25] MEDS ORDERED: LIDOCAINE 4% TOPICAL SOLN 50 ML TOP ONE (00:28)
== END 2018-10-25 01:16 | disposition home or self-care (01) ==
LOC: ER 21:45
DX: K62.5 Hemorrhage of anus and rectum (principal); I10 Essential (primary) hypertension; E11.9 Type 2 diabetes mellitus without complications; Z88.6 Allergy status to analgesic agent
CPT/HCPCS: 99283; J3490

== ENCOUNTER 2019-04-04 00:14 | Emergency (ER) | payer OTHER, MEDICARE, MEDICAID ==
[2019-04-04] MEDS ORDERED: CLINDAMYCIN HCL 150 MG CAPSULE PO ONE (01:11)
--- NOTE | 2019-04-04 01:16 | ER Document Report ---
ED General - General Chief Complaint: Skin Sore(s) Stated Complaint: CUT UNDER LEFT THIGH Time Seen by Provider: 04/04/19 01:03 Primary Care Provider: JAYME LUJAN MD [Primary Care Provider] - Follow up as needed Notes: Patient is a pleasant 53-year-old male who presents with complaints of a open sore on the proximal posterior aspect of his left thigh. Patient says that he had a lump there. He sometimes gets lumps or from him having a toilet seat is too small to cause pressure against the skin and he will get sores. He says this will open on its own. Did not have any drainage from appears in any fevers. He says that diabetic. He was recently treated by his primary care doctor on the first week of March for sciatica. He was given a shot of a steroid. Says since then his blood sugars have been running high in his mouth has been dry. He saw his doctor again this past week and his blood sugar was over 400 and she told him that it should soon correct as sister where it should be wearing off. He has not yet checked his blood sugar today. Denies any fevers. No vomiting. No other complaints at this time. TRAVEL OUTSIDE OF THE [place] IN LAST 30 DAYS: No - Related Data Allergies/Adverse Reactions: aspirin [Aspirin] Allergy (Verified 04/04/19 03:31) Past Medical History - Social History Smoking Status: Never Smoker Frequency of alcohol use: None Drug Abuse: None Family History: Reviewed & Not Pertinent - Past Medical History Cardiac Medical History: Reports: Hx Hypertension Denies: Hx Coronary Artery Disease, Hx Hypercholesterolemia Endocrine Medical History: Reports: Hx Diabetes Mellitus Type 2 Renal/ Medical History: Denies: Hx Peritoneal Dialysis Malignancy Medical History: Reports Hx Prostate Cancer Past Surgical History: Reports: Hx Orthopedic Surgery - back laminectomy, no hardware - Immunizations Immunizations up to date: Yes Hx Diphtheria, Pertussis, Tetanus Vaccination: Yes Review of Systems - Review of Systems Notes: My Normal Review Basic REVIEW OF SYSTEMS: CONSTITUTIONAL : Denies fever, chills, or sweats. Denies recent illness. RESPIRATORY: Denies cough, cold, or chest congestion. Denies shortness of breath, difficulty breathing, or wheezing. GASTROINTESTINAL: Denies abdominal pain. Denies nausea, vomiting, or diarrhea. Denies constipation. Last BM: GENITOURINARY: Denies difficulty urinating, painful urination, burning, frequency, or blood in urine. MUSCULOSKELETAL: Denies neck or back pain or joint pain or swelling. SKIN: Open area and skin over left proximal posterior thigh. NEUROLOGICAL: Denies altered mental status or loss of consciousness. Denies h eadache. Denies weakness or paralysis or loss of use of either side. Denies problems with gait or speech. Denies sensory or motor loss. ALL OTHER SYSTEMS REVIEWED AND NEGATIVE. Physical Exam - Vital signs Vitals: Temp Pulse Resp BP Pulse Ox 98 F 101 H 18 118/73 95 04/04/19 00:21 04/04/19 00:21 04/04/19 00:21 04/04/19 00:04/04/19 00:21 - Notes Notes: General Appearance: Well nourished, alert, cooperative, no acute distress, no obvious discomfort. Well-appearing. Vitals: reviewed, See vital signs table. Head: no swelling or tenderness to the head Eyes: PERRL, EOMI, Conjuctiva clear Mouth: No decreasd moisture Extremities: strength 5/5 in all extremities, good pulses in all extremities, no swelling or tenderness in the extremities, no edema. Skin: warm, dry, appropriate color, patient does have what appear to be a weak spot in the skin from what is likely pressure ulceration that has since opened. There is no surrounding redness or erythema. No abnormal drainage. This area is over the proximal posterior left thigh approximately 4 to 5 inches from his perineum. Neuro: speech clear, oriented x 3, normal affect, responds appropriately to questions. Course - Re-evaluation Re-evalutation: 04/04/19 04:14 Patient's blood sugars are much improved. It continues to trend downward appropriately. I encouraged him to continue take his home diabetes medications. I encouraged him to avoid any further steroid medications. He does have the sore on the back of his left thigh. It is close enough to the perineal region and he is a diabetic that I am placing him on antibiotics to help prevent any secondary infection. Encouraged him to do dressing changes 1-2 times a day and to keep the area very clean with soap and water. Encouraged him return to ER if he has redness or swelling around the wound, if he has fevers, or if he has recurrent high blood sugars not responding to his home diabetes medications. Patient agrees with plan and will be discharged home. Dictation of this chart was performed using voice recognition software; therefore, there may be some unintended grammatical errors. - Vital Signs Vital signs: Temp Pulse Resp BP Pulse Ox 98 F 101 H 18 118/73 95 04/04/19 00:21 04/04/19 00:21 04/04/19 00:21 04/04/19 00:21 04/04/19 00:21 - Laboratory Result Diagrams: 04/04/19 01:17 Laboratory results interpreted by me: 04/04/19 04/04/19 01:17 04:03 Glucose 550 H* POC Glucose 330 H Discharge - Discharge Clinical Impression: Hyperglycemia Skin ulcer Qualifiers: Non-pressure ulcer stage: unspecified non-pressure ulcer stage Qualified Code(s): L98.499 - Non-pressure chronic ulcer of skin of other sites with unspecified severity Condition: Good Disposition: HOME, SELF-CARE Additional Instructions: Please continue take your diabetes medications as prescribed. Currently the ulceration on the back of your leg does not appear to be infected however it is in an area that is high risk for infection. As a diabetic if you get infection in this area it could be serious. I therefore have placed you on an antibiotic to take for the next 7 days as the ulceration attempts to heal. Please continue to do dressing changes and keep the area clean. Please with follow-up with your doctor this coming week for reevaluation. Please return to the ER if you have any redness or swelling of your leg, fevers, or if your blood sugars are consistently above 400 despite taking your medications. Prescriptions: Clindamycin HCl [Cleocin 150 mg Capsule] 300 mg PO Q6 #56 capsule
[2019-04-04] MEDS ORDERED: INSULIN REG, HUMAN 100 UNIT/ML 3 ML VIAL (PYX) SUBCUT ONE (01:26)
[2019-04-04 01:55] LABS: ANION GAP 10 (5-19); BLOOD UREA NITROGEN 15 mg/dL (7-20); CALCIUM 9.2 mg/dL (8.4-10.2); CARBON DIOXIDE 27 mmol/L (22-30); CHLORIDE 101 mmol/L (98-107); POTASSIUM 4.1 mmol/L (3.6-5.0); SODIUM 138.2 mmol/L (137-145)
[2019-04-04 02:02] LABS: GLUCOSE 550 mg/dL (75-110)
[2019-04-04] MEDS ORDERED: INSULIN GLARGINE,HUM.REC.ANLOG 1,000 UNIT/10 ML VIAL SUBCUT ONE (03:00)
[2019-04-04 04:32] VITALS: BP 122/82
== END 2019-04-04 04:31 | disposition home or self-care (01) ==
LOC: ER 00:14
DX: L98.499 Non-pressure chronic ulcer of skin of other sites with unspecified severity (principal); S71.112A Laceration without foreign body, left thigh, initial encounter; E11.622 Type 2 diabetes mellitus with other skin ulcer; L97.129 Non-pressure chronic ulcer of left thigh with unspecified severity; E11.65 Type 2 diabetes mellitus with hyperglycemia; Z79.899 Other long term (current) drug therapy; I10 Essential (primary) hypertension; Z88.8 Allergy status to other drugs, medicaments and biological substances; Z85.46 Personal history of malignant neoplasm of prostate
CPT/HCPCS: 99283; 36415; 82962; 80048; J1815 ×2

== ENCOUNTER 2019-05-16 09:19 | Emergency (ER) | payer OTHER, MEDICARE, MEDICAID ==
--- NOTE | 2019-05-16 09:50 | ER Document Report ---
ED Medical Screen (RME) - General Chief Complaint: High Blood Sugar Stated Complaint: HIGH BLOOD SUGAR Time Seen by Provider: 05/16/19 09:43 Primary Care Provider: DEBBIE KEENAN PA [Primary Care Provider] - Follow up as needed Notes: Patient is a 53-year-old male with a history of hypertension, type 2 diabetes and prostate cancer who presents to the emergency department with a chief complaint of dizziness and just not feeling right. Patient states yesterday he was out in his yard when he almost fainted. Patient states he did not lose consciousness or fall. Patient states he had the same type of feeling this morning. Patient states he only checks his blood sugar once a week and it was 273 last Friday. Patient states he does take glipizide and metformin, with his last dose being yesterday. Patient states he has had increased urination. Patient denies nausea, vomiting or diarrhea. Patient denies abdominal pain, shortness of breath or chest pain. Patient states that since being on prednisone for his sciatica at the beginning of March his sugars have been higher than normal. Patient states he is not currently on steroids. TRAVEL OUTSIDE OF THE [place] IN LAST 30 DAYS: No - Related Data Allergies/Adverse Reactions: aspirin [Aspirin] Allergy (Verified 05/16/19 09:20) Past Medical History - Past Medical History Cardiac Medical History: Reports: Hx Hypertension Denies: Hx Coronary Artery Disease, Hx Hypercholesterolemia Endocrine Medical History: Reports: Hx Diabetes Mellitus Type 2 Renal/ Medical History: Denies: Hx Peritoneal Dialysis Malignancy Medical History: Reports Hx Prostate Cancer Past Surgical History: Reports: Hx Orthopedic Surgery - back laminectomy, no hardware - Immunizations Immunizations up to date: Yes Hx Diphtheria, Pertussis, Tetanus Vaccination: Yes History of Influenza Vaccine for 06/2017 - 11/2017 Season: No Physical Exam - Vital signs Vitals: Temp Pulse Resp BP Pulse Ox 98.2 F 100 16 112/69 95 05/16/19 09:35 05/16/19 09:35 05/16/19 09:35 05/16/19 09:35 05/16/19 09:35 - Cardiovascular Rhythm: Regular Heart sounds: Normal auscultation, S1 appreciated, S2 appreciated - Abdominal Inspection: Obese Bowel sounds: Normal Tenderness: Nontender Organomegaly: No organomegaly Course - Re-evaluation Re-evalutation: 05/16/19 09:50 I have greeted and performed a rapid initial assessment of this patient. A comprehensive ED assessment and evaluation of the patient, analysis of test results and completion of the medical decision making process will be conducted by additional ED providers. - Vital Signs Vital signs: Temp Pulse Resp BP Pulse Ox 98.2 F 100 16 112/69 95 05/16/19 09:35 05/16/19 09:35 05/16/19 09:35 05/16/19 09:35 05/16/19 09:35 Doctor's Discharge - Discharge Referrals: DEBBIE KEENAN PA [Primary Care Provider] - Follow up as needed
[2019-05-16 10:17] LABS: ABSOLUTE BASOPHILS # (AUTO) 0.1 10^3/uL (0.0-0.2); ABSOLUTE EOSINOPHILS # (AUTO) 0.2 10^3/uL (0.0-0.6); ABSOLUTE LYMPHOCYTES (AUTO) 1.5 10^3/uL (0.5-4.7); ABSOLUTE MONOCYTES (AUTO) 0.5 10^3/uL (0.1-1.4); ABSOLUTE NEUT (AUTO) 4.3 10^3/uL (1.7-8.2); BASOPHILS % (AUTO) 0.8 % (0-2); EOSINOPHILS % (AUTO) 2.5 % (0-6); HEMATOCRIT 46.6 % (37.9-51.0); HEMOGLOBIN 15.4 g/dL (13.5-17.0); MEAN CORPUSCULAR HEMOGLOBIN 28.7 pg (27.0-33.4); MEAN CORPUSCULAR VOLUME 87 fl (80-97); MONOCYTES % (AUTO) 7.8 % (3-13); PLATELET COUNT 191 10^3/uL (150-450); RED BLOOD COUNT 5.35 10^6/uL (4.35-5.55); RED CELL DISTRIBUTION WIDTH 13.8 % (11.5-14.0); SEGMENTED NEUTROPHILS % (AUTO) 65.9 % (42-78); TOTAL CELLS COUNTED % (AUTO) 100 %; WHITE BLOOD COUNT 6.6 10^3/uL (4.0-10.5)
[2019-05-16 10:19] LABS: APPEARANCE,URINE CLEAR; BILIRUBIN,URINE NEGATIVE (NEGATIVE); COLOR,URINE YELLOW; GLUCOSE, URINE >=500 mg/dL (NEGATIVE); KETONES,URINE TRACE mg/dL (NEGATIVE); LEUKOCYTE ESTERASE,URINE NEGATIVE (NEGATIVE); NITRITE,URINE NEGATIVE (NEGATIVE); PROTEIN,URINE NEGATIVE (NEGATIVE); URINE SPECIFIC GRAVITY 1.036; UROBILINOGEN,URINE NEGATIVE mg/dL (<2.0)
[2019-05-16 10:23] LABS: ALBUMIN 3.8 g/dL (3.5-5.0); ALKALINE PHOSPHATASE 102 U/L (38-126); ANION GAP 11 (5-19); ASPARTATE AMINO TRANSFERASE 29 U/L (17-59); BILIRUBIN,DIRECT 0.3 mg/dL (0.0-0.4); BILIRUBIN,TOTAL 1.4 mg/dL (0.2-1.3); BLOOD UREA NITROGEN 13 mg/dL (7-20); CALCIUM 9.1 mg/dL (8.4-10.2); CARBON DIOXIDE 26 mmol/L (22-30); CHLORIDE 98 mmol/L (98-107); POTASSIUM 3.5 mmol/L (3.6-5.0); TOTAL PROTEIN 6.5 g/dL (6.3-8.2)
[2019-05-16 10:31] LABS: GLUCOSE 605 mg/dL (75-110)
[2019-05-16] MEDS ORDERED: INSULIN REG, HUMAN 100 UNIT/ML 3 ML VIAL (PYX) IV ONE (10:40)
[2019-05-16] MEDS ORDERED: NORMAL SALINE 1000 ML 1,000 ML IV ONE (10:40)
[2019-05-16] MEDS ORDERED: NYSTATIN CREAM 15 GM TP ONE (10:57)
--- NOTE | 2019-05-16 11:01 | ER Document Report ---
ED General - General Chief Complaint: High Blood Sugar Stated Complaint: HIGH BLOOD SUGAR Time Seen by Provider: 05/16/19 09:43 Primary Care Provider: DEBBIE KEENAN PA [NO LOCAL MD] - Follow up as needed TRAVEL OUTSIDE OF THE [place] IN LAST 30 DAYS: No - HPI Notes: Patient is a 53-year-old male who presents to the emergency department for evaluation. He states he has been dizzy, very thirsty. He has been urinating excessively. He said intermittent blurred vision. He comes in because he has been so weak that he nearly passed out. He states his been taking his medicatio ns as prescribed. He states he checks his blood sugar once weekly and it seems to be under 300. He admits that he is not very compliant with his diet. He had an orange soda this morning. Patient also states he has a laceration on his penis. He recently had sexual intercourse with his . He sustained the injury during normal physical activity. He denies any fevers or chills. Normal bowel movements. No recent changes in his medicines. He does relate that he did not take his medications today. - Related Data Allergies/Adverse Reactions: aspirin [Aspirin] Allergy (Verified 05/16/19 09:20) Past Medical History - General Information source: Patient - Social History Smoking Status: Never Smoker Chew tobacco use (# tins/day): No Frequency of alcohol use: None Drug Abuse: None Family History: Reviewed & Not Pertinent, DM Patient has suicidal ideation: No Patient has homicidal ideation: No - Past Medical History Cardiac Medical History: Reports: Hx Hypertension Denies: Hx Coronary Artery Disease, Hx Hypercholesterolemia Endocrine Medical History: Reports: Hx Diabetes Mellitus Type 2 Renal/ Medical History: Denies: Hx Peritoneal Dialysis Malignancy Medical History: Reports Hx Prostate Cancer Past Surgical History: Reports: Hx Orthopedic Surgery - back laminectomy, no hardware - Immunizations Immunizations up to date: Yes Hx Diphtheria, Pertussis, Tetanus Vaccination: Yes Review of Systems - Review of Systems Constitutional: See HPI EENT: No symptoms reported Cardiovascular: See HPI Respiratory: No symptoms reported Gastrointestinal: No symptoms reported Genitourinary: See HPI Male Genitourinary: See HPI Musculoskeletal: No symptoms reported Skin: See HPI Neurological/Psychological: No symptoms reported Physical Exam - Vital signs Vitals: Temp Pulse Resp BP Pulse Ox 98.2 F 100 16 112/69 95 09/01/19 09:35 05/16/19 09:35 05/16/19 09:35 05/16/19 09:35 05/16/19 09:35 - Notes Notes: This is an obese male, appears his stated age, no acute distress. Vital signs reviewed, please refer to chart. Head is normocephalic, atraumatic. Pupils equal round, reactive to light. Neck is supple without meningismus. Heart is regular rate and rhythm. Lungs are clear to auscultation bilaterally. Abdomen is soft, nontender, normoactive bowel sounds throughout. Examination of the genital region yields moisture, erythema, and white residue consistent with a candidal infection beneath the foreskin. There is a superficial 1 cm laceration on the underside of the foreskin without active bleeding or foreign body. Extremities without cyanosis, clubbing. Posterior calves are nontender. Peripheral pulses are equal. Skin is warm and dry. Patient is awake, alert, neurological exam is nonfocal. Course - Re-evaluation Re-evalutation: 05/16/19 12:01 Patient presents emergency department for evaluation of the above-mentioned symptoms. His laboratory investigations revealed a marked hyperglycemia. He is not acidotic. He admits to drinking a regular orange soda just prior to arrival. We discussed dietary changes as needed. We discussed the need for close follow-up with primary care, he may need medication adjustment. He voiced understanding. He was given insulin and fluids here. He is to go home and take his regular medications. We will give him diabetes education information. He is also started on nystatin cream for the candidiasis and irritation under his foreskin. He is to follow-up with primary care, return to the ED with worsening or new concerning symptoms of any sort. - Vital Signs Vital signs: Temp Pulse Resp BP Pulse Ox 98.2 F 85 20 119/78 100 05/16/19 09:35 05/16/19 10:37 05/16/19 10:36 05/16/19 11:02 05/16/19 11:02 - Laboratory Result Diagrams: 05/16/19 10:01 05/16/19 10:01 Laboratory results interpreted by me: 05/16/19 05/16/19 05/16/19 10: 10:01 11:26 Sodium 135.1 L Potassium 3.5 L Glucose 605 H* POC Glucose 458 H* Total Bilirubin 1.4 H Urine Glucose (UA) >=500 H Urine Ketones TRACE H - EKG Interpretation by Me Additional EKG results interpreted by me: 05/16/19 12:02 Sinus mechanism with rate of 90 bpm. Normal axis and intervals, no acute ST changes concerning for ischemia or infarction. Discharge - Discharge Clinical Impression: Type 2 diabetes mellitus, Hyperglycemia due to type 2 diabetes mellitus, Nadege infection of genital region Condition: Stable Disposition: HOME, SELF-CARE Instructions: Hyperglycemia ([facility]) Additional Instructions: Make dietary changes as discussed. Drink more water. Continue your home medications as prescribed. You need to follow-up with your primary care physician this week to discuss possible medication adjustments. Keep penis clean and dry. Use nystatin cream 3 times a day. Return to the ED with worsening or concerning symptoms of any sort. Referrals: DEBBIE KEENAN PA [NO LOCAL MD] - Follow up as needed
[2019-05-16 12:40] VITALS: BP 115/86
--- NOTE | 2019-05-16 15:00 | EKG REPORT ---
SEVERITY:- BORDERLINE ECG - SINUS RHYTHM BORDERLINE T WAVE ABNORMALITIES : Confirmed by: Wiliam Cook MD 16-May-2019 15:00:29
== END 2019-05-16 12:40 | disposition home or self-care (01) ==
LOC: ER 09:19
DX: E11.65 Type 2 diabetes mellitus with hyperglycemia (principal); Z91.11 Patient's noncompliance with dietary regimen; B37.2 Candidiasis of skin and nail; S31.21XA Laceration without foreign body of penis, initial encounter; X58.XXXA Exposure to other specified factors, initial encounter; R53.1 Weakness; R55 Syncope and collapse; E66.9 Obesity, unspecified; I10 Essential (primary) hypertension; Z88.8 Allergy status to other drugs, medicaments and biological substances; Z85.46 Personal history of malignant neoplasm of prostate
CPT/HCPCS: 99283; 96360; 36415; 82962; 85025; 80053; 81001; 84484; 93005; 93010; J3490; J1815; J7030